=== PATIENT | female | born 1985 | race Caucasian/White ===

== ENCOUNTER 2017-12-10 12:19 | Emergency (ER) | payer MEDICAID, OTHER ==
[~2017-12-10] VITALS: Ht 162.6 cm; Wt 52.2 kg
[2017-12-10 12:21] VITALS: BP 132/82
[2017-12-10] MEDS ORDERED: IBUPROFEN 400 MG TABLET ONE (12:52)
[2017-12-10] MEDS: IBUPROFEN 400 MG TABLET PO ONE (12:53)
--- NOTE | 2017-12-10 14:14 | NUR ---
DISCHARGED HOME WITH KNEE IMMOBILIZER AND CRUTCHES.
== END 2017-12-10 14:14 | disposition home or self-care (01) ==
LOC: ER 12:20
DX: S86.911A Strain of unspecified muscle(s) and tendon(s) at lower leg level, right leg, initial encounter (principal); X58.XXXA Exposure to other specified factors, initial encounter; Y93.89 Activity, other specified; Y92.89 Other specified places as the place of occurrence of the external cause; Y99.8 Other external cause status
CPT/HCPCS: 73564-TC; A4606; Z7610